=== PATIENT | male | born 1950 | race Caucasian/White ===

== ENCOUNTER 2018-04-05 15:27 | Emergency (ER) | payer MEDICARE ==
[~2018-04-05] VITALS: Ht 165.1 cm; Wt 63.5 kg
[2018-04-05 15:45] VITALS: BP 131/52
[2018-04-05] MEDS ORDERED: FENTANYL PATCH75 MCG TRANSDERM (15:55)
[2018-04-05] MEDS ORDERED: DILAUDID 2 MG TA2 MG PO (15:55)
[2018-04-05] MEDS ORDERED: FENTANYL1 EAC1 TRANSDERM (15:58)
== END 2018-04-05 16:11 | disposition home or self-care (01) ==
LOC: M.ERS 15:27
DX: M54.9 Dorsalgia, unspecified (principal); Z76.0 Encounter for issue of repeat prescription

== ENCOUNTER 2018-04-23 11:52 | Emergency (ER) | payer MEDICARE ==
[~2018-04-23] VITALS: Ht 172.7 cm; Wt 59.0 kg
[~2018-04-23 11:52] MED LIST: DILAUDID 2 MG TA2 MG PO; FENTANYL PATCH75 MCG TRANSDERM; FENTANYL1 EAC1 TRANSDERM
[2018-04-23] MEDS ORDERED: FENTANYL PATCH75 MCG TRANSDERM (12:07)
[2018-04-23 12:13] VITALS: BP 143/52
== END 2018-04-23 12:13 | disposition home or self-care (01) ==
LOC: M.ERS 11:52
DX: G89.29 Other chronic pain (principal); Z76.0 Encounter for issue of repeat prescription; Z88.6 Allergy status to analgesic agent; Z88.8 Allergy status to other drugs, medicaments and biological substances

== ENCOUNTER 2018-06-07 13:12 | Emergency (ER) | payer MEDICARE ==
[~2018-06-07] VITALS: Ht 172.7 cm; Wt 56.7 kg
[2018-06-07] MEDS ORDERED: NORVASC2.5 MG PO (14:26)
[2018-06-07] MEDS ORDERED: LISINOPRIL5 MG PO (14:27)
[2018-06-07] MEDS ORDERED: FENTANYL PATCH75 MCG TRANSDERM (14:42)
[2018-06-07 14:52] VITALS: BP 140/64
== END 2018-06-07 14:54 | disposition home or self-care (01) ==
LOC: M.ERS 13:12
DX: G89.29 Other chronic pain (principal); Z76.0 Encounter for issue of repeat prescription; Z88.6 Allergy status to analgesic agent; Z88.8 Allergy status to other drugs, medicaments and biological substances

== ENCOUNTER 2018-07-23 09:33 | Emergency (ER) | payer MEDICARE ==
[~2018-07-23] VITALS: Ht 172.7 cm; Wt 56.7 kg
[~2018-07-23 09:33] MED LIST changes: +LISINOPRIL5 MG PO; +NORVASC2.5 MG PO
[2018-07-23] MEDS ORDERED: FENTANYL PATCH75 MCG TRANSDERM (10:29)
[2018-07-23 10:55] VITALS: BP 127/63
== END 2018-07-23 10:55 | disposition home or self-care (01) ==
LOC: M.ERS 09:33
DX: M79.605 Pain in left leg (principal); Z76.0 Encounter for issue of repeat prescription; Z88.6 Allergy status to analgesic agent; Z88.8 Allergy status to other drugs, medicaments and biological substances

== ENCOUNTER 2018-08-27 11:38 | Emergency (ER) | payer MEDICARE ==
[~2018-08-27] VITALS: Ht 172.7 cm; Wt 56.7 kg
[2018-08-27 12:06] VITALS: BP 131/63
== END 2018-08-27 12:06 | disposition left against medical advice (07) ==
LOC: M.ERS 11:38
DX: G89.29 Other chronic pain (principal); M79.661 Pain in right lower leg; M79.662 Pain in left lower leg; Z88.6 Allergy status to analgesic agent; Z88.8 Allergy status to other drugs, medicaments and biological substances

== ENCOUNTER 2018-08-31 12:15 | Emergency (ER) | payer MEDICARE ==
[~2018-08-31] VITALS: Ht 167.6 cm; Wt 54.4 kg
[2018-08-31] MEDS ORDERED: FENTANYL PATCH75 MCG TRANSDERM (12:31)
[2018-08-31 12:55] VITALS: BP 126/56
== END 2018-08-31 12:55 | disposition home or self-care (01) ==
LOC: M.ERS 12:15
DX: G89.29 Other chronic pain (principal); M79.604 Pain in right leg; M79.605 Pain in left leg; Z76.0 Encounter for issue of repeat prescription; Z88.6 Allergy status to analgesic agent; F17.200 Nicotine dependence, unspecified, uncomplicated